=== PATIENT | female | born 1975 | race Caucasian/White ===

== ENCOUNTER 2016-11-15 17:35 | Inpatient (IN) | payer MEDICAID, OTHER ==
[2016-11-15 18:23] LABS: BASO # 0.1 K/uL (0.0-0.2); BASO % 1.3 % (0.0-2.0); EOS # 0.1 K/uL (0.0-0.7); EOS % 1.2 % (0.0-4.0); HEMOGLOBIN 12.4 g/dL (11.0-16.0); LYMPH # 2.1 K/uL (1.0-4.3); MEAN CORPUSCULAR HEMOGLOBIN 29.5 pg (27.0-31.0); MEAN CORPUSCULAR HGB CONC 31.9 g/dL (33.0-37.0); MEAN PLATELET VOLUME 9.2 fL (7.2-11.7); MONO # 0.3 K/uL (0.0-0.8); MONO % 6.6 % (0.0-10.0); NEUT # 2.4 K/uL (1.8-7.0); NEUT % 48.9 % (50.0-75.0); NRBC % 0.1 % (0.0-2.0); RBC 4.19 Mil/uL (3.80-5.20); RED CELL DISTRIBUTION WIDTH 19.2 % (11.5-14.5); WHITE BLOOD COUNT 4.9 K/uL (4.8-10.8)
--- NOTE | 2016-11-15 18:26 | C.PDOC ---
History Of Present Illness 41-year-old female, presents to the emergency department, pre-screened for detox from alcohol. Patient states she drinks a liter of wine everyday. Denies any chest pain or shortness of breath. Time Seen by Provider: 11/15/16 17:47 Chief Complaint (Nursing): Substance Abuse History Per: Patient History/Exam Limitations: no limitations Onset/Duration Of Symptoms: Days Current Symptoms Are (Timing): Still Present Past Medical History Reviewed: Historical Data, Nursing Documentation, Vital Signs Vital Signs: Last Vital Signs Temp 98.1 F 11/15/16 23:36 Pulse 92 H 11/15/16 23:36 Resp 20 11/15/16 23:36 BP 130/92 H 11/15/16 23:36 Pulse Ox 99 11/15/16 23:36 - Medical History PMH: Depression, Seizures Family History: States: No Known Family Hx - Social History Hx Alcohol Use: Yes Hx Substance Use: No (DENIED) - Immunization History Hx Tetanus Toxoid Vaccination: No Hx Influenza Vaccination: No Hx Pneumococcal Vaccination: No Review Of Systems Except As Marked, All Systems Reviewed And Found Negative. Constitutional: Negative for: Fever, Chills Cardiovascular: Negative for: Chest Pain Respiratory: Negative for: Shortness of Breath Gastrointestinal: Negative for: Nausea, Vomiting Neurological: Negative for: Weakness, Numbness, Headache, Dizziness Physical Exam - Physical Exam Appears: Non-toxic, No Acute Distress Skin: Warm, Dry, No Rash Head: Atraumatic, Normacephalic Eye(s): bilateral: Normal Inspection, PERRL Nose: Normal Oral Mucosa: Moist Neck: Normal ROM Cardiovascular: Rhythm Regular, No Murmur Respiratory: Normal Breath Sounds, No Accessory Muscle Use Extremity: Normal ROM Neurological/Psych: Oriented x3, Normal Speech ED Course And Treatment - Laboratory Results Result Diagrams: 11/15/16 18:19 11/15/16 18:19 Lab Interpretation: No Acute Changes O2 Sat by Pulse Oximetry: 96 Progress Note: Patient is medically cleared for admission for alcohol detox. Reevaluation Time: 23:58 Reassessment Condition: Improved Disposition - Disposition Disposition: HOSPITALIZED Disposition Time: 23:58 Condition: STABLE - POA Present On Arrival: None - Clinical Impression Clinical Impression: Alcohol dependence - Scribe Statement The provider has reviewed the documentation as recorded by the Scribe (Danny Lamar) All medical record entries made by the Scribe were at my direction and personally dictated by me. I have reviewed the chart and agree that the record accurately reflects my personal performance of the history, physical exam, medical decision making, and the department course for this patient. I have also personally directed, reviewed, and agree with the discharge instructions and disposition.
[2016-11-15 18:30] LABS: MEAN CELL VOLUME 92.3 fL (81.0-99.0)
[2016-11-15 18:33] LABS: ALBUMIN 3.8 g/dL (3.5-5.0)
[2016-11-15 18:35] LABS: BENZODIAZEPINES, UR NEGATIVE (NEGATIVE); GFR AFRICAN-AMERICAN > 60; GFR NON-AFRICAN AMERICAN > 60
[2016-11-15 18:36] LABS: ALB/GLOB RATIO 1.3 (1.0-2.1); ALT/SGPT 23 U/L (9-52); AST/SGOT 50 U/L (14-36); BARBITURATES, UR NEGATIVE (NEGATIVE); BLOOD UREA NITROGEN 6 mg/dL (7-17); CALCIUM 8.5 mg/dl (8.6-10.4)
[2016-11-15 18:37] LABS: SQUAMOUS EPITHIAL 4 /hpf (0-5); URINE BACTERIA OCC (<OCC); URINE BILIRUBIN NEGATIVE (NEGATIVE); URINE BLOOD 2+ (NEGATIVE); URINE CLARITY Hazy (Clear); URINE COLOR Yellow (YELLOW); URINE GLUCOSE (UA) NORMAL (Normal); URINE LEUKOCYTE ESTERASE TRACE Leu/uL (Negative); URINE NITRATE POSITIVE (NEGATIVE); URINE PROTEIN NEGATIVE (NEGATIVE); URINE UROBILINOGEN NORMAL mg/dL (0.2-1.0)
[2016-11-15 18:39] LABS: OPIATES, UR NEGATIVE (NEGATIVE)
[2016-11-15 18:40] LABS: PHENCYCLIDINE, UR NEGATIVE (NEGATIVE)
[2016-11-16] MEDS: Multiple Vitamins Tab PO SCH (10:02)
[2016-11-16] MEDS: Naltrexone 25 MG TAB PO SCH (10:28)
--- NOTE | 2016-11-16 14:37 | PCM.PSYCH ---
Initial Psychiatric Evaluation - Initial Psychiatric Evaluation Type of Admission: Voluntary Legal Status: Capacity Chief Complaint (in patient's own words): "I need help and I want to stop" History of Present Illness and Precipitating Events: 41yo female with alcohol withdrawal. Her alcohol use (and depression) started in 2009 after her fell while painting, resulting in head trauma and his . She drinks 1 bottle of wine/ day with occasional hard alcohol. The drinking has become a problem in the past 3-4 yrs. She denies other drug use but cannabis Currently going through [facility], has no DTs but had a seizure. Went to detox once at [facility] in [place] in 2013. Has never been to rehab. She received a DUI in 2009 - the year her . She drinks alone at home and has never attended an AA meeting. Smokes marijuana everyday for the past 3 yrs. Smokes cigarettes occasionally. Past psychiatric hx: depression, anxiety. Family psychiatric hx: denies any family psychiatric dx Medical hx: HTN, liver enzymes slightly elevated Social hx: who lives alone in [place]. Pt has 4 children, ages 13, 16, 20 and 21. The two younger children live with her parents and the two older ones are living at college. She has one dog who is currently with her aunt. 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 Her parents and 2 younger children are in [place] and she plans on moving there as soon as she gets the chance, even if that means quitting her job. Current Medications: Active Medications Generic Name Dose Route Start Last Admin Trade Name Freq PRN Reason Stop Dose Admin Chlordiazepoxide 25 mg 11/16/16 06:00 11/16/16 13:11 Librium PO 11/20/16 05:59 25 mg Q6 JAYLEN Administration Taper Chlordiazepoxide 25 mg 11/16/16 00:25 11/16/16 10:03 Librium PO 25 mg Q4H PRN Administration Alcohol Withdrawal Clonidine HCl 0.1 mg 11/16/16 00:25 11/16/16 10:02 Catapres PO 0.1 mg Q4H PRN Administration Symptoms of alcohol withdrawl Escitalopram Oxalate 10 mg 11/16/16 10:00 11/16/16 10:28 Lexapro PO 10 mg DAILY JAYLEN Administration Folic Acid 1 mg 11/16/16 10:00 11/16/16 10:02 Folic Acid PO 1 mg DAILY JAYLEN Administration Hydrochlorothiazide 25 mg 11/16/16 10:00 11/16/16 10:28 Hydrodiuril PO 25 mg DAILY JAYLEN Administration Hydroxyzine HCl 25 mg 11/16/16 09:40 Atarax PO Q4H PRN Anxiety Ibuprofen 400 mg 11/16/16 09:40 Motrin Tab PO Q6H PRN Pain, moderate (4-7) Losartan Potassium 50 mg 11/16/16 14:00 Cozaar PO DAILY JAYLEN Multivitamins 1 tab 11/16/16 10:00 11/16/16 10:02 Hexavitamin PO 1 tab DAILY JAYLEN Administration Naltrexone HCl 25 mg 11/16/16 10:00 11/16/16 10:28 Revia PO 25 mg DAILY JAYLEN Administration Pneumococcal Polyvalent Vaccine 0.5 ml 11/19/16 10:00 Pneumovax 23 Vaccine IM 11/19/16 10:01 .ONCE ONE Quetiapine Fumarate 50 mg 11/16/16 22:00 Seroquel PO HS JAYLEN Thiamine HCl 100 mg 11/16/16 10:00 11/16/16 10:02 Vitamin B1 Tab PO 100 mg DAILY JAYLEN Administration Trazodone HCl 50 mg 11/16/16 00:25 Desyrel PO HS PRN Insomnia Past Psychiatric History - Past Psychiatric History Previous Treatment History: None Pertinent Medical Hx (Current Medical&Sleep Prob, Allergies): Allergies Allergy/AdvReac Type Severity Reaction Status Date / Time No Known Allergies Allergy Verified 11/15/16 17:42 Acamprosate Calcium 333 mg PO BID 11/15/16 QUEtiapine [SEROquel] 25 mg PO HS 11/15/16 Tegretol 100 mg PO DAILY 11/15/16 Topiramate [Topamax] 25 mg PO DAILY 11/15/16 clonazePAM [clonAZEPAM] 0.5 mg PO Q12H PRN 11/15/16 hydroCHLOROthiazide [Microzide] 12.5 mg PO BID 11/15/16 Review of Systems - Neurological Neurological: As Per HPI - Psychiatric Psychiatric: As Per HPI, Abnormal Sleep Pattern, Anhedonia, Anxiety, Change in Appetite, Depression, Hopelessness. absent: Hallucinations, Homicidal Ideation , Suicidal Ideation Mental Status Examination - Personal Presentation Personal Presentation: Looks stated age - Affect Affect: Constricted, Depressed - Motor Activity Motor Activity: Calm - Reliability in Providing Information Reliability in Providing Information: Good - Speech Speech: Organized, Relevant, Coherent - Mood Mood: Depressed, Anxious - Formal Thought Process Formal Thought Process: No Impairment - Obsessions/Compulsions Obsessions: No Compulsions: No - Cognitive Functions Orientation: Person, Place, Situation, Time Sensorium: Drowsy, Lethargic Attention/Concentration: Easily distracted Abstract Thinking: [place] Estimate of Intelligence: Average Judgement: Imparied, as evidence by: Poor judgement, Intact, as evidence by: Insight regarding need for hospitalization Memory: Recent intact, as evidence by: Ability to recall events of the day, Remote intact, as evidenced by: Ability to recall historical events - Risk Risk: Diminished functioning - Strength & Assets Inventory Strength & Assets Inventory: Intelligence, Family support, Education, Employment status, Skills, Cooperative - Limitations Limitations: Living alone DSM 5 DX - DSM 5 DSM 5 Diagnosis: Alcohol use disorder - severe Alcohol withdrawal Major Depression, single, moderate - Recommended/Plan of Treatment Treatment Recommendations and Plan of Treatment: Alcohol use disorder and withdrawal Librium detox Naltrexone Topamax As needed meds and vitamins [place] for abstinence and CBT for relapse prevention Support and psychoeducation Refer to aftercare Depression and anxiety Lexapro 10 mg Attend groups and activities Refer to after care 33 min Projected ELOS: 3-5 days Prognosis: Good with treatment - Smoking Cessation Smoking Cessation Initiated: Yes
[2016-11-17] MEDS: Multiple Vitamins Tab PO SCH (10:31)
[2016-11-17] MEDS: Naltrexone 25 MG TAB PO SCH (10:34)
--- NOTE | 2016-11-17 14:51 | PCM.PYCHPN ---
Psychiatric Progress Note - Psychiatric Progress Note Patient seen today, length of contact: 16 min Patient Chief Complaint: "I still feel really bad. When will I get better?" Problems Identified/Issues Discussed: The pt is seen, chart reviewed, case discussed with staff. Patient reports poor sleep with sweats, nightmares and enuresis. The pt is compliant with medications. Symptoms are improving slowly but needs more time to stabilize. After care discussed, support and psychoeducation given. Medication Change: Yes (Detox changes daily) Medical Record Reviewed: Yes Mental Status Examination - Cognitive Function Orientation: Person, Place, Situation, Time Memory: Intact Attention: Poor Concentration: Poor Association: WNL Fund of Knowledge: WNL - Mood Mood: Depressed, Anxious - Affect Affect: Constricted, Depressed - Speech Speech: Soft - Formal Thought Process Formal Thought Process: No Impairment - Suicidal Ideation Suicidal Ideation: No - Homicidal Ideation Homicidal Ideation: No Goal/Treatment Plan - Goal/Treatment Plan Need for Continued Stay: Severe depression anxiety, Discharge may exacerbated symptoms, Severe functional impairment Progress Toward Problem(s) and Goals/Treatment Plan: Alcohol use disorder and withdrawal Librium detox Naltrexone Topamax As needed meds and vitamins [place] for abstinence and CBT for relapse prevention Support and psychoeducation Refer to aftercare Depression and anxiety Lexapro 10 mg Attend groups and activities Refer to after care
[2016-11-18] MEDS: Multiple Vitamins Tab PO SCH (09:32)
[2016-11-18] MEDS: Naltrexone 25 MG TAB PO SCH (09:34)
--- NOTE | 2016-11-18 17:28 | PCM.PYCHPN ---
Psychiatric Progress Note - Psychiatric Progress Note Patient seen today, length of contact: 16 min Patient Chief Complaint: "Not well yet, cannot sleep" Problems Identified/Issues Discussed: The pt is seen, chart reviewed, case discussed with staff. Support given, CBT and AR used briefly No new symptoms reported, but insomnia She is improving slowly and needs some more time No SEs from medications, risks discussed. After care discussed Medication Change: Yes (Detox changes daily) Medical Record Reviewed: Yes Mental Status Examination - Cognitive Function Orientation: Person, Place, Situation, Time Memory: Intact Attention: Poor Concentration: Poor Association: WNL Fund of Knowledge: WNL - Mood Mood: Depressed, Anxious - Affect Affect: Constricted, Depressed - Speech Speech: Soft - Formal Thought Process Formal Thought Process: No Impairment - Suicidal Ideation Suicidal Ideation: No - Homicidal Ideation Homicidal Ideation: No Goal/Treatment Plan - Goal/Treatment Plan Need for Continued Stay: Severe depression anxiety, Discharge may exacerbated symptoms, Severe functional impairment Progress Toward Problem(s) and Goals/Treatment Plan: Alcohol use disorder and withdrawal Librium detox Naltrexone Topamax As needed meds and vitamins [place] for abstinence and CBT for relapse prevention Support and psychoeducation Refer to aftercare Depression and anxiety Lexapro 10 mg Attend groups and activities Refer to after care Estimated Date of D/C: 11/20/16
[2016-11-19] MEDS: Naltrexone 25 MG TAB PO SCH (09:55)
[2016-11-19] MEDS: Multiple Vitamins Tab PO SCH (09:56)
[2016-11-19] MEDS ORDERED: Pneumococcal 23-Valent Vaccine IM ONE (10:00)
[2016-11-19 13:47] VITALS: RESP 18
--- NOTE | 2016-11-19 13:59 | PCM.PYCHPN ---
Psychiatric Progress Note - Psychiatric Progress Note Patient seen today, length of contact: 15 minutes Patient Chief Complaint: I'm feeling better Problems Identified/Issues Discussed: Patient seen. Chart reviewed. Case discussed with this staff. Issues related to illness and treatment were discussed with the patient. Reported compliant with treatment with no adverse affects. Tolerating treatment very well. Reported had a seizure 2 days before admission, was her first seizure. Reported feeling much better with no adverse affects or any withdrawal symptoms. At the time of evaluation, patient was awake alert oriented 3, had no delusions, no auditory or visual hallucinations, no suicidal ideations or homicidal ideations. Medical Problems: Hypertension Diagnostic Results: Reviewed DSM 5 Symptoms Update: Improvement with treatment Medication Change: No Medical Record Reviewed: Yes Mental Status Examination - Cognitive Function Orientation: Person, Place, Situation, Time Memory: Intact Attention: WNL Concentration: WNL Association: WNL Fund of Knowledge: [facility] Decription of patient's judgement and insights: Fair - Mood Mood: Anxious (Less than before) - Affect Affect: Other (Appropriate) - Speech Speech: Soft - Formal Thought Process Formal Thought Process: No Impairment Psychotic Thoughts and Behaviors: None - Suicidal Ideation Suicidal Ideation: No - Homicidal Ideation Homicidal Ideation: No Goal/Treatment Plan - Goal/Treatment Plan Need for Continued Stay: Remain at risks for inpatient hospitalization, Discharge may exacerbated symptoms, Severe functional impairment Progress Toward Problem(s) and Goals/Treatment Plan: Patient education Supportive therapy Continue treatment as before Wants to go to [facility] in [place], for follow-up care after discharge from the hospital. Estimated Date of D/C: 11/20/16 - Smoking Cessation Smoking Cessation Initiated: No
[2016-11-20] MEDS: Multiple Vitamins Tab PO SCH (09:49)
[2016-11-20] MEDS: Naltrexone 25 MG TAB PO SCH (09:50)
[2016-11-20] MEDS ORDERED: Naltrexone 25 MG TAB PO ONE (14:00)
--- NOTE | 2016-11-20 14:26 | PCM.PYCHPN ---
Psychiatric Progress Note - Psychiatric Progress Note Patient seen today, length of contact: 16 minutes Patient Chief Complaint: "I slept good on and off, and I feel a little better." Problems Identified/Issues Discussed: The pt is seen, chart reviewed, case discussed with staff. The pt is compliant with medications and reports no side-effects. Symptoms are improving but needs more time to stabilize. After care discussed, support and psychoeducation given. Medication Change: Yes ((Detox changes daily)) Medical Record Reviewed: Yes Mental Status Examination - Cognitive Function Orientation: Person, Place, Situation, Time Memory: Intact Attention: WNL Concentration: WNL Association: WN Fund of Knowledge: WN - Mood Mood: Anxious (Less than before) - Affect Affect: Constricted, Other - Speech Speech: Soft - Formal Thought Process Formal Thought Process: No Impairment - Suicidal Ideation Suicidal Ideation: No - Homicidal Ideation Homicidal Ideation: No Goal/Treatment Plan - Goal/Treatment Plan Need for Continued Stay: Remain at risks for inpatient hospitalization, Discharge may exacerbated symptoms Progress Toward Problem(s) and Goals/Treatment Plan: Alcohol use disorder and withdrawal Librium detox Naltrexone Topamax As needed meds and vitamins MD for abstinence and CBT for relapse prevention Support and psychoeducation Refer to aftercare Depression and anxiety Lexapro 10 mg Attend groups and activities Refer to after care Estimated Date of D/C: 11/21/16 If changed, why: Discharge may exacerbate symptoms
[2016-11-21 05:12] VITALS: O2SAT 99
--- NOTE | 2016-11-21 08:46 | PCM.PYCHDC ---
Mental Status Examination - Mental Status Examination Orientation: Person Memory: Intact Mood: Anxious Affect: Constricted Speech: Soft Attention: WNL Concentration: WNL Association: WNL Fund of Knowledge: WNL Formal Thought Process: No Impairment Suicidal Ideation: No Current Homicidal Ideation?: No Discharge Summary - Discharge Note Reason for Hospitalization: Patient was admitted for Alcohol withdrawal with a seizure, alcohol use disorder and depression." Consultations:: List each consultation separately and include: 1. Reason for request. 2. Findings. 3. Follow-up Summary of Hospital Course include:: 1. Description of specific treatment plan utilized for patients during their course of treatmen. 2. Summarize the time- course for resolution of acute symptoms and/or regressed behaviors. 3. Describe issues identified and worked on during hospitalization. 4. Describe medication utilized. 5. Describe medical problems identified and treated. 6. Reassessment of suicide risk Summary of Hospital Course: Upon admission: 41yo female with alcohol withdrawal. Her alcohol use (and depression) started in 2009 after her fell while painting, resulting in head trauma and his . She drinks 1 bottle of wine/ day with occasional hard alcohol. The drinking has become a problem in the past 3-4 yrs. She denies other drug use but cannabis Currently going through [facility], has no DTs but had a seizure. Went to detox once at [facility] in [place] in 2013. Has never been to rehab. She received a DUI in 2009 - the year her . She drinks alone at home and has never attended an AA meeting. Smokes marijuana everyday for the past 3 yrs. Smokes cigarettes occasionally. Past psychiatric hx: depression, anxiety. Family psychiatric hx: denies any family psychiatric dx Medical hx: HTN, liver enzymes slightly elevated Social hx: who lives alone in [place]. Pt has 4 children, ages 13, 16, 20 and 21. The two younger children live with her parents and the two older ones are living at college. She has one dog who is currently with her aunt. 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 Her parents and 2 younger children are in [place] and she plans on moving there as soon as she gets the chance, even if that means quitting her job. Upon discharge: The pt was admitted and started on treatment with psychotherapy, support, psychoeducation and medications. VT and CBT used. The pt attended groups and activities, as well as milieu therapy. All the risks and benefits of medications are discussed and the patient understood and agreed. The pt improved with the treatments provided. After care discussed with the patient. Patient will go to [facility] in [place]. She was somewhat motivated. - Final Diagnosis (DSM 5) Condition upon Discharge: STABLE DSM 5: Alcohol use disorder - severe Alcohol withdrawal Major Depression, single, moderate Disposition: HOME/ ROUTINE Follow-up Treatment Plan: Continue below medications after discharge. Follow after care plan as discussed. Use relapse prevention skills and attend [facility]. Return to ER or call 911 if suicidal, homicidal or symptoms relapse. Stay away from stress, alcohol and drugs. See primary doctor once a year. Prescriptions/Medication Reconciliation: Escitalopram [Lexapro] 20 mg PO DAILY #30 tab hydrOXYzine HCl [Atarax] 25 mg PO Q4H PRN #60 tab PRN Reason: Anxiety Naltrexone [Revia] 50 mg PO DAILY #30 tab Nitrofurantoin Macrocrystals [Macrobid] 100 mg PO Q12H #6 cap QUEtiapine [Seroquel] 100 mg PO HS #30 tab Topiramate [Topamax] 50 mg PO BID #60 tab traZODone [Desyrel] 50 mg PO HS PRN #30 tab PRN Reason: Insomnia - Smoking Cessation Smoking Cessation Medication prescribed: No - Antipsychotic Medications Pt discharged on 2 or more routine antipsychotic medications: No
[2016-11-21] MEDS: Multiple Vitamins Tab PO SCH (09:53)
[2016-11-21 10:09] VITALS: BP 123/90; PULSE 93; TEMP 97.6
== END 2016-11-21 10:00 | disposition home or self-care (01) | DRG 750 ==
LOC: C.ER 17:35 → C.9OBSV 21:05 → OBSVTOIN 23:59 → C.7D 11-16 00:10
PROVIDERS: ADMIT Psychiatry & Neurology Psychiatry; ATTEND Psychiatry & Neurology Psychiatry
PROC: HZ2ZZZZ Detoxification Services for Substance Abuse Treatment (ICD-10-PCS; principal; 2016-11-15)
PROC: HZ42ZZZ Group Counseling for Substance Abuse Treatment, Cognitive-Behavioral (ICD-10-PCS; 2016-11-15)
PROC: HZ52ZZZ Individual Psychotherapy for Substance Abuse Treatment, Cognitive-Behavioral (ICD-10-PCS; 2016-11-15)
PROC: HZ59ZZZ Individual Psychotherapy for Substance Abuse Treatment, Supportive (ICD-10-PCS; 2016-11-15)
PROC: HZ56ZZZ Individual Psychotherapy for Substance Abuse Treatment, Psychoeducation (ICD-10-PCS; 2016-11-15)
PROC: HZ46ZZZ Group Counseling for Substance Abuse Treatment, Psychoeducation (ICD-10-PCS; 2016-11-15)
DX: F10.288 Alcohol dependence with other alcohol-induced disorder (principal); R56.9 Unspecified convulsions; F12.10 Cannabis abuse, uncomplicated; F32.1 Major depressive disorder, single episode, moderate; I10 Essential (primary) hypertension; Y90.8 Blood alcohol level of 240 mg/100 ml or more; F17.210 Nicotine dependence, cigarettes, uncomplicated; F41.9 Anxiety disorder, unspecified; G47.00 Insomnia, unspecified